=== PATIENT | female | born 1950 | race Caucasian/White ===

== ENCOUNTER → 2024-07-15 | Outpatient (CLI) | payer MEDICARE, BC, SELFPAY ==
[2024-07-15 17:58] LABS: Thyroid Stimulating Hormone 1.83 uIU/mL (0.55-4.78)
== END | disposition home or self-care (01) ==
LOC: COPL 16:14
PROVIDERS: PCP Internal Medicine; Referring Provider Otolaryngology; Visit Provider Otolaryngology
DX: E03.9 Hypothyroidism, unspecified (principal)
CPT/HCPCS: 36415; 84443